=== PATIENT | female | born 1935 | race Caucasian/White ===

== ENCOUNTER 2017-04-08 06:23 | Inpatient (IN) | payer OTHER, MEDICARE ==
--- NOTE | 2017-04-08 07:37 | PDOC ---
History of Present Illness - General Chief Complaint: Cold Symptoms Stated Complaint: FLU LIKE SYMPTOMS Time Seen by Provider: 04/08/17 07:36 History Source: Patient Exam Limitations: No Limitations - History of Present Illness Initial Comments: 04/08/17 07:58 Patient is an 81-year-old female past medical history of hypertension, coronary artery disease status post coronary bypass proximally 6 years ago, who presents emergency department today complaining of a cough for 4 days. Patient states that she feels like she has a lot of mucus and it runs down the back of her throat. She has been taking Delsym at her home with relief of her cough. Today she states that her cough was worse than usual. Denies fevers, chills, chest pain, palpitations, ear pain, headache, nausea, vomiting, diarrhea, shortness of breath at rest, shortness of breath on exertion, urinary symptoms. Triage Vital signs show the patient is afebrile. Past History - Travel Traveled outside of the country in the last 30 days: No Close contact w/someone who was outside of country & ill: No - Past Medical History Allergies/Adverse Reactions: Allergies Allergy/AdvReac Type Severity Reaction Status Date / Time clindamycin Allergy Verified 04/08/17 06:38 Penicillins Allergy Verified 04/08/17 06:38 Home Medications: Ambulatory Orders Aspirin 81 mg PO DAILY 04/08/17 Furosemide 20 mg PO DAILY 04/08/17 Melatonin 3 mg PO HS 04/08/17 Rosuvastatin [Crestor -] 20 mg PO HS 04/08/17 Valsartan [Diovan] 80 mg PO DAILY 04/08/17 COPD: No HTN: Yes Hypercholesterolemia: Yes - Suicide/Smoking/Psychosocial Hx Smoking History: Never smoked Have you smoked in the past 12 months: No Information on smoking cessation initiated: No Hx Alcohol Use: No Drug/Substance Use Hx: No Review of Systems - Review of Systems Able to Perform ROS?: Yes Comments:: 04/08/17 08:00 CONSTITUTIONAL: Absent: fever, chills, diaphoresis, generalized weakness, malaise, loss of appetite HEENT: Present: nasal congestion, post nasal drip, rhinorrhea Absent: throat pain, throat swelling, difficulty swallowing, mouth swelling, ear pain, eye pain, visual Changes CARDIOVASCULAR: Absent: chest pain, loss of consciousness, palpitations, irregular heart rate, peripheral edema RESPIRATORY: Present: cough, unable to bring up mucous Absent: shortness of breath, dyspnea with exertion, orthopnea, wheezing, stridor, hemoptysis GASTROINTESTINAL: Absent: abdominal pain, abdominal distension, nausea, vomiting, diarrhea, constipation, melena, hematochezia GENITOURINARY: Absent: dysuria, frequency, urgency, hesitancy, hematuria, flank pain, genital pain MUSCULOSKELETAL: Absent: myalgia, arthralgia, joint swelling SKIN: Absent: rash, itching, pallor HEMATOLOGIC/IMMUNOLOGIC: Absent: easy bleeding, easy bruising, lymphadenopathy, frequent infections ENDOCRINE: Absent: unexplained weight gain, unexplained weight loss, heat intolerance, cold intolerance NEUROLOGIC: Absent: headache, focal weakness or paresthesias, dizziness, unsteady gait, seizure, mental status changes, bladder or bowel incontinence PSYCHIATRIC: Absent: anxiety, depression, suicidal or homicidal ideation, hallucinations. Is the patient limited [place] proficient: No *Physical Exam - Vital Signs Last Vital Signs Temp Pulse Resp BP Pulse Ox 98.9 F 89 20 141/62 98 04/08/17 06:38 04/08/17 06:38 04/08/17 06:38 04/08/17 06:38 04/08/17 06:38 - Physical Exam Comments: 04/08/17 08:01 GENERAL: Well developed, well nourished. Awake and alert. No acute distress. Actively coughing, wet, non-productive HEENT: Normocephalic, atraumatic. PERRLA, EOMI. No conjunctival pallor. Sclera are non- icteric. Moist mucous membranes. Oropharynx is clear. NECK: Supple. Full ROM. No JVD. Carotid pulses 2+ and symmetric, without bruits. No thyromegaly. No lymphadenopathy. CARDIOVASCULAR: Regular rate and rhythm. Patient with systolic murmur II/, loudest at the 3rd R intercostal space. No rubs, or gallops. Distal pulses are 2+ and symmetric. PULMONARY: No evidence of respiratory distress. Lungs clear to auscultation bilaterally. No wheezing, rales or rhonchi. ABDOMINAL: Soft. Non-tender. Non-distended. No rebound or guarding. No organomegaly. Normoactive bowel sounds. MUSCULOSKELETAL Normal range of motion at all joints. No bony deformities or tenderness. No CVA tenderness. EXTREMITIES: No cyanosis. No clubbing. No edema. No calf tenderness. SKIN: Warm and dry. Normal capillary refill. No rashes. No jaundice. NEUROLOGICAL: Alert, awake, appropriate. Cranial nerves 2-12 intact. No deficits to light touch and temperature in face, upper extremities and lower extremities. No motor deficits in the in face, upper extremities and lower extremities. Normoreflexic in the upper and lower extremities. Normal speech. Toes are down- going bilaterally. Gait is normal without ataxia. PSYCHIATRIC: Cooperative. Good eye contact. Appropriate mood and affect. ED Treatment Course - LABORATORY CBC & Chemistry Diagram: 04/08/17 08:18 04/08/17 14:07 Medical Decision Making - Medical Decision Making 04/08/17 08:02 Patient is an 81-year-old female with past medical history of HLD, coronary artery disease status post bypass approximately 6 years ago, who presents to the emergency department with 4 days of cough. Vital signs are currently stable , patient is afebrile. Low suspicion for influenza at this time as patient does not have headaches, body aches, nausea, vomiting or fever. Possible upper respiratory infection, sinus infection, pneumonia. Plan as follows 1.CBC, CMP, influenza swab 2.chest x-ray 3.Robitussin, DuoNeb 4.reevaluate 04/08/17 09:23 Marked leukocytosis at 25. Na 118 at this time. Pt. does take lasix per alf records. However, haziness at R base of lung. Possible PNA vs vascular congestion? Consider SIADH at this time. CXR also shows old coronary surgery, appears to be a bypass, possible valve. Will add blood cx, influenza testing, Chest CT, ekg, urine osmolalities. Will also give IVF NS for the hyponatremia. Free water restrict. Empiric IV ABX after blood cx drawn. 04/08/17 11:53 Urine with 3+ leukocytes, probable UTI EKG: Rate 97, sinus. incomplete RBBB. Non-specific ST-T wave changes. 04/08/17 12:[address] report to return. Will admit to tai for hyponatremia, leukocytosis, UTI, URI. Microblog sent 04/08/17 12:11 Spoke with tai Grayson. Case discussed and will accept pt for admission at this time. *DC/Admit/Observation/Transfer Diagnosis at time of Disposition: Hyponatremia Leukocytosis Qualifiers: Leukocytosis type: unspecified Qualified Code(s): D72.829 - Elevated white blood cell count, unspecified URI (upper respiratory infection) Qualifiers: URI type: unspecified viral URI Qualified Code(s): J06.9 - Acute upper respiratory infection, unspecified UTI (urinary tract infection) Qualifiers: Urinary tract infection type: acute cystitis Hematuria presence: without hematuria Qualified Code(s): N30.00 - Acute cystitis without hematuria - Discharge Dispostion Condition at time of disposition: Stable Admit: Yes - Referrals - Patient Instructions - Post Discharge Activity
[2017-04-08] MEDS ORDERED: guaiFENesin 200 MG/10 ML 10 ML UNIT-DOSE CUPS PO ONE (07:49)
[2017-04-08] MEDS ORDERED: ALBUTEROL SO4 2.5/IPRATROPIUM 0.5 INH SOL 3 ML VIAL.NEB. NEB ONE ×6 (07:50→10:54)
--- NOTE | 2017-04-08 07:51 | PDOC ---
*Physical Exam - Vital Signs Last Vital Signs Temp Pulse Resp BP Pulse Ox 98.9 F 89 20 141/62 98 04/08/17 06:38 04/08/17 06:38 04/08/17 06:38 04/08/17 06:38 04/08/17 06:38 - Physical Exam Comments: 04/08/17 07:50 The patient was examined by [APOLONIA Mcpherson] under my direct supervision. I personally evaluated the patient. I concur with the above findings and the plan of care. ED Treatment Course - LABORATORY CBC & Chemistry Diagram: 04/11/17 06:10 04/11/17 06:10 *DC/Admit/Observation/Transfer Diagnosis at time of Disposition: Hyponatremia, Leukocytosis, URI (upper respiratory infection), UTI (urinary tract infection) - Discharge Dispostion Disposition: HOME Condition at time of disposition: Improved - Prescriptions - Referrals - Patient Instructions - Post Discharge Activity
[2017-04-08] MEDS ORDERED: guaiFENesin/D-METHORPHAN HB 10 ML UNIT-DOSE CUPS ONE (08:20)
[2017-04-08 08:44] LABS: HEMATOCRIT 33.4 % (32.4-45.2); HEMOGLOBIN 11.1 GM/dL (10.7-15.3); MCH 29.5 pg (25.7-33.7); MCHC 33.4 g/dl (32.0-36.0); MEAN CELL VOLUME 88.3 fl (80-96); MEAN PLT VOLUME 9.6 fl (7.5-11.1); PLATELET COUNT 155 K/MM3 (134-434); RBC 3.78 M/mm3 (3.60-5.2); RDW 13.5 % (11.6-15.6); WHITE BLOOD COUNT 25.6 K/mm3 (4.0-10.0)
[2017-04-08 09:07] LABS: ALBUMIN 3.7 g/dl (3.4-5.0); ALK PHOS 69 U/L (45-117); ANION GAP 12 (8-16); BILIRUBIN,TOTAL 1.2 mg/dL (0.2-1.0); BLOOD UREA NITROGEN 10 mg/dL (7-18); CHLORIDE 83 mmol/L (98-107); CO2 23 mmol/L (21-32); CREATININE 0.8 mg/dL (0.55-1.02); GLUCOSE,RANDOM 112 mg/dL (74-106); POTASSIUM 3.7 mmol/L (3.5-5.1); SGOT/AST 66 U/L (15-37); SGPT/ALT 41 U/L (12-78); TOT PROT 6.8 g/dl (6.4-8.2)
[2017-04-08 09:18] LABS: SODIUM 118 mmol/L (136-145)
[2017-04-08] MEDS ORDERED: SODIUM CHLORIDE 0.9% 1000 ML INFUS.BAG IV ONE (09:27)
[2017-04-08] MEDS ORDERED: OSELTAMIVIR PHOSPHATE 75 MG CAPSULE PO ONE (09:32)
[2017-04-08] MEDS ORDERED: OSELTAMIVIR PHOSPHATE 75 MG CAPSULE ONE (09:42)
[2017-04-08] MEDS ORDERED: methylPREDNISolone NA SUCC 125 MG/2 ML VIAL IVPUSH ONE (10:42)
[2017-04-08] MEDS ORDERED: methylPREDNISolone NA SUCC 125 MG/2 ML VIAL ONE (10:54)
[2017-04-08 11:03] LABS: URINE APPEARANCE CLOUDY; URINE BILIRUBIN NEGATIVE (NEGATIVE); URINE BLOOD NEGATIVE (NEGATIVE); URINE COLOR YELLOW; URINE GLUCOSE (UA) NEGATIVE (NEGATIVE); URINE KETONE TRACE (NEGATIVE); URINE NITRITE NEGATIVE (NEGATIVE)
[2017-04-08 11:34] LABS: URINE LEUK ESTERASE 3+ (NEGATIVE); URINE PROTEIN 1+ (NEGATIVE)
[2017-04-08 11:37] LABS: EPI CELLS RARE /HPF (FEW); URINE MUCUS RARE
[2017-04-08 12:19] LABS: PLATELET ESTIMATE ADEQUATE
[2017-04-08 12:50] LABS: OSMOLALITY,URINE 409 mosm/kg (300-900)
--- NOTE | 2017-04-08 13:05 | HP ---
CHIEF COMPLAINT: PCP: HISTORY OF PRESENT ILLNESS: This is an 81 yo F with PMH of CAD s/p CABG 6 yrs ago, HTN, HLD, who presents due to persistent cough since new year. She does not recall any inciting event and no aggravating factors. Cough is dry/productive of scant clear sputum, mildly alleviated by over the counter cough medicine. She sleeps on 2 pillows, has not increased head elevation in bed and denies orthopnea. She denies sob, anorexia, LE edema. She state that she has had overwhelming sensation of thirst for a while and has been drinking a lot of water. At bed side patient is constantly sipping on water, stating that her mouth is "dry like a desert", however her mucus membranes appear moist. She denies h/a, dizziness, loc, sz, cp , n/v, diarrhea. She reports some polyuria and constipation. She is compliant with home meds. She denies rhinorrhea, thoat pain, ear pain. Patient is a poor historian. ER course was notable for: (1)EKG: Prolonged IL (2)CXR bibasilar congestion. CTA achest wnl. flu swab negative (3)tamifly, albuterol, medrol 125 Recent Travel: denies PAST MEDICAL HISTORY: as above PAST SURGICAL HISTORY: as above Social History: Lives in [facility] facility because her apt is getting renovated Smoking: denies Alcohol:denies Drugs: denies Family History: noncontributory Allergies clindamycin Allergy (Verified 04/08/17 06:38) Penicillins Allergy (Verified 04/08/17 06:38) HOME MEDICATIONS: Home Medications Medication Instructions Recorded Aspirin 81 mg PO DAILY 04/08/17 Furosemide 20 mg PO DAILY 04/08/17 Melatonin 3 mg PO HS 04/08/17 Rosuvastatin [Crestor -] 20 mg PO HS 04/08/17 Valsartan [Diovan] 80 mg PO DAILY 04/08/17 REVIEW OF SYSTEMS CONSTITUTIONAL: Absent: fever, chills, diaphoresis, loss of appetite, weight change HEENT: Absent: rhinorrhea, nasal congestion, throat pain CARDIOVASCULAR: Absent: chest pain, syncope, palpitations, irregular heart rate, lightheadedness , peripheral edema RESPIRATORY: Absent: shortness of breath, dyspnea with exertion, orthopnea, GASTROINTESTINAL: Absent: abdominal pain, abdominal distension, nausea, vomiting, diarrhea, constipation, melena, hematochezia GENITOURINARY: Absent: dysuria, hematuria, flank pain MUSCULOSKELETAL: Absent: myalgia, arthralgia SKIN: Absent: rash, itching, pallor HEMATOLOGIC/IMMUNOLOGIC: Absent: easy bleeding, easy bruising, lymphadenopathy, frequent infections ENDOCRINE: Absent: unexplained weight gain, unexplained weight loss NEUROLOGIC: Absent: headache, focal weakness or paresthesias PSYCHIATRIC: Absent: anxiety, depression PHYSICAL EXAMINATION Vital Signs - 24 hr 04/08/17 04/08/17 06:38 11:45 Temperature 98.9 F Pulse Rate 89 105 H Respiratory 20 Rate Blood Pressure 141/62 O2 Sat by Pulse 98 98 Oximetry (%) GENERAL: Awake, alert, and fully oriented, in no acute distress. HEAD: Normal with no signs of trauma. EYES: Pupils equal, round and reactive to light, extraocular movements intact, sclera anicteric, conjunctiva clear. No lid lag. EARS, NOSE, THROAT: Moist mucous membranes. NECK: supple without lymphadenopathy or JVD LUNGS: bibasilar crackles HEART: Regular rate and rhythm, normal S1 and S2 grade 3 systolic ejection murmur ABDOMEN: Soft, mildly tender in lower quadrants, moderately distended, reduced bowel sounds, no guarding, no rebound, no masses. MUSCULOSKELETAL: No CVA tenderness. UPPER EXTREMITIES: 2+ pulses, warm, well-perfused. No cyanosis. No clubbing. No peripheral edema. LOWER EXTREMITIES: 1+ pulses, warm, well-perfused. No calf tenderness. trace peripheral edema. NEUROLOGICAL: Cranial nerves II-XII grossly intact. Normal speech. fine tremor in hands PSYCHIATRIC: Cooperative. Good eye contact. Appropriate mood and affect. SKIN: Warm, dry, 3x2 cm echymotic lesion on RLQ abdomen Laboratory Results - last 24 hr 04/08/17 04/08/17 04/08/17 08:18 08:18 09:40 WBC 25.6 H RBC 3.78 Hgb 11.1 Hct 33.4 MCV 88.3 MCH 29.5 MCHC 33.4 RDW 13.5 Plt Count 155 MPV 9.6 Total Counted 100 Neutrophils % No Result Required. Neutrophils % (Manual) 80.0 Lymphocytes % No Result Required. Lymphocytes % (Manual) 2.0 L Monocytes % (Manual) 17 H* Eosinophils % (Manual) 1.0 Platelet Estimate Adequate Sodium 118 L* Potassium 3.7 Chloride 83 L Carbon Dioxide 23 Anion Gap 12 BUN 10 Creatinine 0.8 Creat Clearance w eGFR > 60 Random Glucose 112 H Calcium 9.0 Total Bilirubin 1.2 H AST 66 H ALT 41 Alkaline Phosphatase 69 Total Protein 6.8 Albumin 3.7 Urine Color Yellow Urine Appearance Cloudy Urine pH 6.0 Ur Specific Continental 1.011 Urine Protein 1+ H Urine Glucose (UA) Negative Urine Ketones Trace H Urine Blood Negative Urine Nitrite Negative Urine Bilirubin Negative Urine Urobilinogen 2.0 H Ur Leukocyte Esterase 3+ H Urine WBC (Auto) 99 Urine RBC (Auto) None Ur Epithelial Cells Rare Urine Mucus Rare Urine Osmolality 04/08/17 12:25 WBC RBC Hgb Hct MCV MCH MCHC RDW Plt Count MPV Total Counted Neutrophils % Neutrophils % (Manual) Lymphocytes % Lymphocytes % (Manual) Monocytes % (Manual) Eosinophils % (Manual) Platelet Estimate Sodium Potassium Chloride Carbon Dioxide Anion Gap BUN Creatinine Creat Clearance w eGFR Random Glucose Calcium Total Bilirubin AST ALT Alkaline Phosphatase Total Protein Albumin Urine Color Urine Appearance Urine pH Ur Specific [place] Urine Protein Urine Glucose (UA) Urine Ketones Urine Blood Urine Nitrite Urine Bilirubin Urine Urobilinogen Ur Leukocyte Esterase Urine WBC (Auto) Urine RBC (Auto) Ur Epithelial Cells Urine Mucus Urine Osmolality 409 ASSESSMENT/PLAN: This is an 81 yo F with PMH of CAD s/p CABG 6 yrs ago, HTN, HLD, who presents due to persistent cough since new year. She does not recall any inciting event and no aggravating factors. Hypoosmolar Hyponatremia with polydipsia -NA 118, Serm osm 241; appears euvolemic vs slightly overloaded -psychogenic polydipsia vs SIAHD; cerebral salt wasting less likely given absence of hypovolemia. -f/u urine osm, Na -fluid restrict to 500c free water/24 hr; strict i/o, trend bmp; if Na not improving, consider Brain imaging to r/o mass/SAH (low suspicion), NS IVF/salt tablets/iv loop diuretic -BNP 1400, CK 888, CKMB 63, trop wnl -CXR mild congestion -TTE -continue home lasix 20 PO daily Sepsis -tachycardia 102, Leukocytosis, monocytosis; 25 wbc/17 monocytes -UA + uti, -abd tenderness/distendtion may be due to constipation, f/u KUB -esr, crp, urine light chains, protein HTN -continue diovan, lasix HLD -continue statin CAD -continue Asa 81 d FEN -fluid restriciton to 500cc /day -monitor Na -regular diet Dispo: adm m/s Problem List - Problem (1) Polydipsia Code(s): R63.1 - POLYDIPSIA (2) Hyponatremia Code(s): E87.1 - HYPO-OSMOLALITY AND HYPONATREMIA (3) Leukocytosis Code(s): D72.829 - ELEVATED WHITE BLOOD CELL COUNT, UNSPECIFIED Qualifiers: Leukocytosis type: unspecified Qualified Code(s): D72.829 - Elevated white blood cell count, unspecified (4) UTI (urinary tract infection) Code(s): N39.0 - URINARY TRACT INFECTION, SITE NOT SPECIFIED Qualifiers: Urinary tract infection type: acute cystitis Hematuria presence: without hematuria Qualified Code(s): N30.00 - Acute cystitis without hematuria (5) CHF exacerbation Code(s): I50.9 - HEART FAILURE, UNSPECIFIED Visit type - Emergency Visit Emergency Visit: Yes ED Registration Date: 04/08/17 Care time: The patient presented to the Emergency Department on the above date and was hospitalized for further evaluation of their emergent condition. - New Patient This patient is new to me today: Yes Date on this admission: 04/08/17 - Critical Care Critical Care patient: No
[2017-04-08 13:18] LABS: OSMOLALITY,SERUM 241 mosm/kg (278-305)
--- NOTE | 2017-04-08 14:03 | EKG ---
Test Reason : Blood Pressure : / mmHG Vent. Rate : 097 BPM Atrial Rate : 097 BPM P-R Int : 158 ms QRS Dur : 100 ms QT Int : 374 ms P-R-T Axes : 073 082 051 degrees QTc Int : 474 ms SINUS RHYTHM WITH PREMATURE ATRIAL COMPLEXES INCOMPLETE RIGHT BUNDLE BRANCH BLOCK POSSIBLE ANTERIOR INFARCT , AGE UNDETERMINED ABNORMAL ECG NO PREVIOUS ECGS AVAILABLE Confirmed by ARIELLE ONTIVEROS MD ([id number]) on 04/08/2017 2:02:57 PM Referred By: Confirmed By:ARIELLE ONTIVEROS MD
[2017-04-08] MEDS: ALBUTEROL SO4 0.083% IH SOL 2.5 MG/3 ML VIAL.NEB. NEB PRN (14:09)
[2017-04-08 15:55] LABS: ANION GAP 15 (8-16); BLOOD UREA NITROGEN 9 mg/dL (7-18); CALCIUM 8.5 mg/dL (8.5-10.1); CHLORIDE 84 mmol/L (98-107); CO2 20 mmol/L (21-32); CREATININE 0.9 mg/dL (0.55-1.02); GLUCOSE,RANDOM 163 mg/dL (74-106); POTASSIUM 3.2 mmol/L (3.5-5.1)
[2017-04-08 15:57] LABS: SODIUM 119 mmol/L (136-145)
[2017-04-08] MEDS ORDERED: SODIUM CHLORIDE 1,000 ML IV STA (16:36)
--- NOTE | 2017-04-08 17:48 | PN ---
Teaching Attending Note Name of Resident: Odilia Grayson ATTENDING PHYSICIAN STATEMENT I saw and evaluated the patient. I reviewed the resident's note and discussed the case with the resident. I agree with the resident's findings and plan as documented. SUBJECTIVE:81yo F wtih PMH HTN, CAD s/p CABG and dyslipidemia presented to the ER with cough x3 months. states she cough constantly and is worse on exertion. cough is not productive and improved with cough medicine. states she has also been very thirsty and continuously requests a glass of water. denies CP, SOB, fever, chills, N/V/C/D, myalgia, rhinorrhea, contact with flu OBJECTIVE: Last Vital Signs Temp Pulse Resp BP Pulse Ox 98.6 F 95 H 16 132/66 97 04/08/17 16:59 04/08/17 16:59 04/08/17 16:59 04/08/17 16:59 04/08/17 16:59 General mildly anxious HEENT EOMI, erthematous pharynx, no nasal polyps, rhinorrhea or erathematous nares CV S1 S2 RRR no murmur/rub/gallop Lungs CTA B/L no wheezing/rales/rhonchi Abdomen soft NT/ND no suprapubic tenderness Extremities no pedal edema ASSESSMENT AND PLAN: 81yo F wtih PMH HTN, CAD s/p CABG and dyslipidemia presented to the ER with cough x3 months and found to be hyponatremic 1. Severe hyponatremia- medicine admission. pt clinically appears dry. will give 1 L NS bolus and repeat labs to monitor for improvement. water restriction to <500cc at this time. check Uosm, Sosm, La. will need frequent lab draws and monitoring 2. Sepsis due to UTI and questionable R infiltrate- tachycardia and leukocytosis with +UA. CTA on my read has questionable R infiltrate. started on levaquin in the ER. will cont for now. will d/c tamiflu as pt does not have typical symptoms suggestive of flu and flu swab is negative. Cx pending 3. HTn- currently normotensive. cont valsartan. will hold lasix at this time. monitor 4. Cough- possible due to postnasal drip although could be due to R infiltrate however less likely given chronicity.will consider nasal spray if does not improve 5. CAD s/p CABG- no signs of acs. cont asa 6. Dyslipidemia- on statin 7. DVT ppx- hep sq
[2017-04-08] MEDS ORDERED: POTASSIUM CHLORIDE ORAL LIQUID 20 MEQ/15 ML PO ONE (19:30)
[2017-04-08] MEDS ORDERED: POTASSIUM CHLORIDE ORAL LIQUID 20 MEQ/15 ML ONE (19:44)
[2017-04-08 20:59] LABS: ANION GAP 11 (8-16); BLOOD UREA NITROGEN 8 mg/dL (7-18); CALCIUM 8.1 mg/dL (8.5-10.1); CHLORIDE 87 mmol/L (98-107); CO2 19 mmol/L (21-32); CREATININE 0.7 mg/dL (0.55-1.02); GLUCOSE,RANDOM 145 mg/dL (74-106); POTASSIUM 4.2 mmol/L (3.5-5.1)
[2017-04-08 21:04] LABS: SODIUM 117 mmol/L (136-145)
[2017-04-08] MEDS: ROSUVASTATIN CA 20 MG TABLET (FP) PO SCH (22:51)
[2017-04-08] MEDS: guaiFENesin 200 MG/10 ML 10 ML UNIT-DOSE CUPS PO PRN (22:51)
[2017-04-08] MEDS: HEPARIN NA (PORCINE) 5,000 UNITS/ML 1ML VIAL SQ SCH (22:51)
[2017-04-09 03:30] LABS: ANION GAP 10 (8-16); BLOOD UREA NITROGEN 10 mg/dL (7-18); CALCIUM 8.3 mg/dL (8.5-10.1); CHLORIDE 91 mmol/L (98-107); CO2 22 mmol/L (21-32); CREATININE 0.8 mg/dL (0.55-1.02); GLUCOSE,RANDOM 121 mg/dL (74-106); POTASSIUM 4.2 mmol/L (3.5-5.1)
[2017-04-09 03:47] LABS: SODIUM 123 mmol/L (136-145)
[2017-04-09 06:11] VITALS: BMI 32.1
[2017-04-09] MEDS: guaiFENesin 200 MG/10 ML 10 ML UNIT-DOSE CUPS PO PRN ×3 (06:45→17:27)
--- NOTE | 2017-04-09 07:00 | HOSP ---
Physical Examination Vital Signs: Vital Signs Temperature 98.5 F 04/09/17 05:00 Pulse Rate 83 04/09/17 05:00 Respiratory Rate 18 04/09/17 05:00 Blood Pressure 140/59 04/09/17 05:00 O2 Sat by Pulse Oximetry (%) 95 04/08/17 21:00 Labs: CBC, BMP 04/08/17 08:18 04/09/17 03:00 Hospitalist Encounter Assessment: Evaluated the patient after the BMP came back. Na was 117 but patient was asymptomatic. Repeat BMP showed Na-123. RN mentions that patient is on water restriction so she is NPO. Patient wanting to drink water, trying to get water even from the toilet. Vitals: BP: 140/59mmHg, P-83, RR-16 General: Patient is comfortably lying in bed, awake, alert, oriented, in no acute distress. HEENT: EOM intact, no pallor or icterus. 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 Piedra. Visit type - Emergency Visit Emergency Visit: Yes ED Registration Date: 04/08/17 Care time: The patient presented to the Emergency Department on the above date and was hospitalized for further evaluation of their emergent condition. - New Patient This patient is new to me today: Yes Date on this admission: 04/09/17 - Critical Care Critical Care patient: No
[2017-04-09 07:15] LABS: HEMATOCRIT 29.8 % (32.4-45.2); HEMOGLOBIN 9.9 GM/dL (10.7-15.3); MCH 29.1 pg (25.7-33.7); MCHC 33.2 g/dl (32.0-36.0); MEAN CELL VOLUME 87.7 fl (80-96); PLATELET COUNT 138 K/MM3 (134-434); RBC 3.39 M/mm3 (3.60-5.2); RDW 13.8 % (11.6-15.6); WHITE BLOOD COUNT 26.4 K/mm3 (4.0-10.0)
[2017-04-09 07:28] LABS: INR 1.31 (0.82-1.09); PROTHROMBIN TIME (PATIENT) 14.8 SEC (9.98-11.88)
[2017-04-09 08:00] LABS: ALBUMIN 3.1 g/dl (3.4-5.0); ANION GAP 10 (8-16); BLOOD UREA NITROGEN 10 mg/dL (7-18); CALCIUM 8.3 mg/dL (8.5-10.1); CHLORIDE 93 mmol/L (98-107); CO2 22 mmol/L (21-32); CREATININE 0.7 mg/dL (0.55-1.02); GLUCOSE,RANDOM 101 mg/dL (74-106); MAGNESIUM 1.9 mg/dL (1.8-2.4); PHOSPHOROUS 2.4 mg/dL (2.5-4.9); POTASSIUM 4.1 mmol/L (3.5-5.1); SGOT/AST 74 U/L (15-37); SGPT/ALT 46 U/L (12-78); SODIUM 125 mmol/L (136-145)
[2017-04-09 08:10] LABS: ALK PHOS 61 U/L (45-117)
[2017-04-09 09:06] LABS: PLATELET ESTIMATE ADEQUATE
[2017-04-09] MEDS ORDERED: FUROSEMIDE 20 MG TABLET (FP) PO SCH (10:00)
[2017-04-09] MEDS ORDERED: VALSARTAN 80 MG TABLET (UD) PO SCH (10:00)
[2017-04-09] MEDS ORDERED: ASPIRIN 81 MG CHEWABLE TABLETS PO SCH (10:00)
[2017-04-09] MEDS: HEPARIN NA (PORCINE) 5,000 UNITS/ML 1ML VIAL SQ SCH ×2 (10:16→21:13)
[2017-04-09] MEDS: ALBUTEROL SO4 0.083% IH SOL 2.5 MG/3 ML VIAL.NEB. NEB PRN ×2 (13:28→20:30)
--- NOTE | 2017-04-09 14:27 | PN ---
Progress Note (short form) - Note Progress Note: c/o cough. slightly better from yesterday. denies Cp, SOB, fever, chills, N/V/C/ D, dysuria, hematuria Current Medications Generic Name Dose Route Start Last Admin Trade Name Freq PRN Reason Stop Dose Admin Albuterol Sulfate 1 amp 04/08/17 13:56 04/09/17 13:28 Ventolin 0.083% Nebulizer Soln - NEB 1 amp Q4H PRN Administration SHORT OF BREATH/WHEEZING Aspirin 81 mg 04/09/17 10:00 04/09/17 10:16 Asa - PO 81 mg DAILY PIERO Administration Guaifenesin 10 ml 04/08/17 22:23 04/09/17 06:45 Robitussin - PO 10 ml Q6H PRN Administration COUGH Heparin Sodium (Porcine) 5,000 unit 04/08/17 22:00 04/09/17 10:16 Heparin - SQ 5,000 unit BID PIERO Administration Levofloxacin 750 mg in 150 mls @ 100 mls/hr 04/09/17 10:00 04/09/17 10:17 Levaquin 750 Mg Premixed Ivpb - IVPB 100 mls/hr DAILY PIERO Administration Rosuvastatin Calcium 20 mg 04/08/17 22:00 04/08/17 22:51 Crestor - PO 20 mg HS PIERO Administration Valsartan 80 mg 04/09/17 10:00 04/09/17 10:16 Diovan - PO 80 mg DAILY PIERO Administration Last Vital Signs Temp Pulse Resp BP Pulse Ox 98.5 F 101 H 20 131/59 95 04/09/17 09:00 04/09/17 09:00 04/09/17 09:00 04/09/17 09:00 04/09/17 09:00 General NAD A&O x3 HEENT moist mucosa CV S1 S2 RRR no murmur/rub/gallop Lungs CTA B/L no wheezing/rales/rhonchi Abdomen soft NT/ND no suprapubic tenderness Extremities no pedal edema CBCD WBC 26.4 K/mm3 (4.0-10.0) H 04/09/17 06:45 RBC 3.39 M/mm3 (3.60-5.2) L 04/09/17 06:45 Hgb 9.9 GM/dL (10.7-15.3) L D 04/09/17 06:45 Hct 29.8 % (32.4-45.2) L 04/09/17 06:45 MCV 87.7 fl (80-96) 04/09/17 06:45 MCHC 33.2 g/dl (32.0-36.0) 04/09/17 06:45 RDW 13.8 % (11.6-15.6) 04/09/17 06:45 Plt Count 138 K/MM3 (134-434) 04/09/17 06:45 MPV 10.0 fl (7.5-11.1) 04/09/17 06:45 CMP Sodium 125 mmol/L (136-145) L 04/09/17 06:45 Potassium 4.1 mmol/L (3.5-5.1) 04/09/17 06:45 Chloride 93 mmol/L (98-107) L 04/09/17 06:45 Carbon Dioxide 22 mmol/L (21-32) 04/09/17 06:45 Anion Gap 10 (8-16) 04/09/17 06:45 BUN 10 mg/dL (7-18) 04/09/17 06:45 Creatinine 0.7 mg/dL (0.55-1.02) 04/09/17 06:45 Creat Clearance w eGFR > 60 (>60) 04/09/17 06:45 Calcium 8.3 mg/dL (8.5-10.1) L 04/09/17 06:45 Total Bilirubin 1.0 mg/dL (0.2-1.0) 04/09/17 06:45 AST 74 U/L (15-37) H 04/09/17 06:45 ALT 46 U/L (12-78) 04/09/17 06:45 Alkaline Phosphatase 61 U/L (45-117) 04/09/17 06:45 Total Protein 6.0 g/dl (6.4-8.2) L 04/09/17 06:45 Albumin 3.1 g/dl (3.4-5.0) L 04/09/17 06:45 Microbiology 04/08/17 09:40 Urine Culture - Preliminary Urine - Urine Clean Catch Lactose Fermenting Neg Bacilli 04/08/17 09:40 Blood Culture - Preliminary Blood - Peripheral Venous NO GROWTH OBTAINED AFTER 24 HOURS, INCUBATION TO CONTINUE FOR 4 DAYS. 04/08/17 09:40 Blood Culture - Preliminary Blood - Peripheral Venous NO GROWTH OBTAINED AFTER 24 HOURS, INCUBATION TO CONTINUE FOR 4 DAYS. 04/08/17 09:40 Influenza Types A,B Antigen (STAR) - Final Nasopharyngeal Swab - Final ASSESSMENT AND PLAN: 81yo F wtih PMH HTN, CAD s/p CABG and dyslipidemia presented to the ER with cough x3 months and found to be hyponatremic 1. Severe hyponatremia-improved. no longer confused. s/p 1.5L NS. repeat BMp and monitor Na level closely. awaiting repeat La and Uosm. pt does not remember to inform RN of urge to urinate 2. Sepsis due to UTI and questionable R infiltrate-improved. continues to have dry cough. cont Levaquin day 2. Ucx pending 3. HTn- currently normotensive. cont valsartan. will hold lasix at this time. monitor 4. Cough- possible due to postnasal drip. start flonase 5. Normocytic anemia- do not have baseline Hgb. no signs of bleeding. likely dilutional component. repeat Hgb. txn as needed 6. CAD s/p CABG- no signs of acs. cont asa 7. Dyslipidemia- on statin 8. DVT ppx- hep sq Visit type - Emergency Visit Emergency Visit: Yes ED Registration Date: 04/08/17 Care time: The patient presented to the Emergency Department on the above date and was hospitalized for further evaluation of their emergent condition. - New Patient This patient is new to me today: No - Critical Care Critical Care patient: No - Discharge Referral Referred to [facility] No
[2017-04-09 15:24] LABS: HEMATOCRIT 30.8 % (32.4-45.2); HEMOGLOBIN 10.7 GM/dL (10.7-15.3); MCH 30.6 pg (25.7-33.7); MCHC 34.6 g/dl (32.0-36.0); MEAN CELL VOLUME 88.5 fl (80-96); MEAN PLT VOLUME 10.5 fl (7.5-11.1); PLATELET COUNT 155 K/MM3 (134-434); RBC 3.49 M/mm3 (3.60-5.2); RDW 13.9 % (11.6-15.6); WHITE BLOOD COUNT 24.4 K/mm3 (4.0-10.0)
[2017-04-09 15:50] LABS: ANION GAP 10 (8-16); BLOOD UREA NITROGEN 16 mg/dL (7-18); CALCIUM 8.5 mg/dL (8.5-10.1); CHLORIDE 95 mmol/L (98-107); CO2 23 mmol/L (21-32); GLUCOSE,RANDOM 129 mg/dL (74-106); POTASSIUM 3.8 mmol/L (3.5-5.1); SODIUM 128 mmol/L (136-145)
[2017-04-09] MEDS: FLUTICASONE PROP 0.05% 16 GM NASAL SPRAY NS SCH (16:21)
[2017-04-09] MEDS: ROSUVASTATIN CA 20 MG TABLET (FP) PO SCH (21:13)
[2017-04-10] MEDS: MELATONIN 1 MG TABLET PO SCH ×2 (00:04→22:02)
[2017-04-10] MEDS: guaiFENesin 200 MG/10 ML 10 ML UNIT-DOSE CUPS PO PRN (06:54)
[2017-04-10 08:17] LABS: BASO % 0.1 % (0-2.0); EOS % 0.6 % (0-4.5); HEMATOCRIT 30.8 % (32.4-45.2); HEMOGLOBIN 10.3 GM/dL (10.7-15.3); LYMPH % 12.6 % (8-40); MCH 29.3 pg (25.7-33.7); MCHC 33.4 g/dl (32.0-36.0); MEAN CELL VOLUME 87.8 fl (80-96); MEAN PLT VOLUME 9.5 fl (7.5-11.1); MONO % 14.5 % (3.8-10.2); NEUT % 72.2 % (42.8-82.8); PLATELET COUNT 146 K/MM3 (134-434); RBC 3.51 M/mm3 (3.60-5.2); RDW 14.1 % (11.6-15.6); WHITE BLOOD COUNT 18.8 K/mm3 (4.0-10.0)
[2017-04-10] MEDS ORDERED: guaiFENesin 200 MG/10 ML 10 ML UNIT-DOSE CUPS PO PRN (08:19)
[2017-04-10 08:20] LABS: CHLORIDE 99 mmol/L (98-107); POTASSIUM 3.7 mmol/L (3.5-5.1); SODIUM 131 mmol/L (136-145)
[2017-04-10 08:30] LABS: ANION GAP 8 (8-16); BLOOD UREA NITROGEN 16 mg/dL (7-18); CALCIUM 8.3 mg/dL (8.5-10.1); CO2 24 mmol/L (21-32); GLUCOSE,RANDOM 93 mg/dL (74-106)
[2017-04-10] MEDS: ALBUTEROL SO4 0.083% IH SOL 2.5 MG/3 ML VIAL.NEB. NEB PRN ×2 (08:46→20:12)
--- NOTE | 2017-04-10 09:33 | PN ---
Teaching Attending Note Name of Resident: Odilia Grayson ATTENDING PHYSICIAN STATEMENT I saw and evaluated the patient. I reviewed the resident's note and discussed the case with the resident. I agree with the resident's findings and plan as documented. SUBJECTIVE:c/o non productive cough. improves with cough syrup. denies CP, SOB< fever, chills, N/V/C/D, or increased thirst OBJECTIVE: Last Vital Signs Temp Pulse Resp BP Pulse Ox 98.4 F 101 H 18 137/81 98 04/10/17 06:57 04/10/17 06:57 04/10/17 06:57 04/10/17 06:57 04/09/17 20:47 General NAD CV S1 S2 RRR no murmur/rub/gallop Lungs CTA B/L no wheezing/rales/rhonchi ASSESSMENT AND PLAN: 81yo F wtih PMH HTN, CAD s/p CABG and dyslipidemia presented to the ER with cough x3 months and found to be hyponatremic 1. Severe hyponatremia-improved. continues to improved on water restriction. La level improved., no longer appears dehydrated. will cont to hold lasix. unclear if she has hx of CHF or was used for HTN 2. Sepsis due to Ecoli UTI and questionable R infiltrate-improved. continues to have dry cough. will start mucinex. cont Levaquin day 3. 3. HTn- currently normotensive. cont valsartan. will hold lasix at this time. monitor 4. Cough- possible due to postnasal drip. cont flonase 5. Normocytic anemia- do not have baseline Hgb. no signs of bleeding. likely dilutional component.Hgb stable. iron studies pending. txn as needed 6. CAD s/p CABG- no signs of acs. cont asa 7. Dyslipidemia- on statin 8. DVT ppx- hep sq 9. anticipate d/c tomorrow to [facility]isted living center. pt acknowledge possible d/ c tomorrow. all questions answered.
[2017-04-10] MEDS: HEPARIN NA (PORCINE) 5,000 UNITS/ML 1ML VIAL SQ SCH ×2 (09:38→21:38)
[2017-04-10] MEDS: VALSARTAN 80 MG TABLET (UD) PO SCH (09:39)
[2017-04-10] MEDS: ASPIRIN 81 MG CHEWABLE TABLETS PO SCH (09:39)
[2017-04-10] MEDS: FLUTICASONE PROP 0.05% 16 GM NASAL SPRAY NS SCH (10:46)
[2017-04-10] MEDS: guaiFENesin/CODEINE 5 ML UNIT-DOSE CUPS PO PRN ×2 (12:30→21:37)
--- NOTE | 2017-04-10 12:39 | PN ---
Physical Exam: SUBJECTIVE: Patient seen and examined Patient resting in bed NAD. Afebrile and hemodynamically stable, no acute events. Denies being thirsty. Tolerating diet. cough is still severe. denies sore thoroat, rhinorrhea, cp, sob. OBJECTIVE: Vital Signs Period Temp Pulse Resp BP Sys/Roblero Pulse Ox Last 24 Hr 97.5 F-98.7 F 81-101 18-20 116-137/58-81 98 GENERAL: Awake, alert, and fully oriented, in no acute distress. HEAD: Normal with no signs of trauma. EYES: Pupils equal, round and reactive to light, extraocular movements intact, sclera anicteric, conjunctiva clear. No lid lag. EARS, NOSE, THROAT: Moist mucous membranes. NECK: supple without lymphadenopathy or JVD LUNGS: bibasilar crackles HEART: Regular rate and rhythm, normal S1 and S2 grade 3 systolic ejection murmur ABDOMEN: Soft, nontender, nondistended, reduced bowel sounds, no guarding, no rebound, no masses. MUSCULOSKELETAL: No CVA tenderness. UPPER EXTREMITIES: 2+ pulses, warm, well-perfused. No cyanosis. No clubbing. No peripheral edema. LOWER EXTREMITIES: 1+ pulses, warm, well-perfused. No calf tenderness. trace peripheral edema. NEUROLOGICAL: Cranial nerves II-XII grossly intact. Normal speech. fine tremor in hands PSYCHIATRIC: Cooperative. Good eye contact. Appropriate mood and affect. SKIN: Warm, dry, 3x2 cm echymotic lesion on RLQ abdomen Laboratory Results - last 24 hr 04/09/17 04/09/17 04/09/17 14:50 14:50 17:25 WBC 24.4 H RBC 3.49 L Hgb 10.7 Hct 30.8 L MCV 88.5 MCH 30.6 MCHC 34.6 RDW 13.9 Plt Count 155 MPV 10.5 Neutrophils % Lymphocytes % Monocytes % Eosinophils % Basophils % Sodium 128 L Potassium 3.8 Chloride 95 L Carbon Dioxide 23 Anion Gap 10 BUN 16 Creatinine 1.0 Random Glucose 129 H Calcium 8.5 Urine Osmolality Ur Random Sodium 19 04/09/17 04/10/17 04/10/17 18:00 07:40 07:40 WBC 18.8 H RBC 3.51 L Hgb 10.3 L Hct 30.8 L MCV 87.8 MCH 29.3 MCHC 33.4 RDW 14.1 Plt Count 146 MPV 9.5 Neutrophils % 72.2 Lymphocytes % 12.6 Monocytes % 14.5 H Eosinophils % 0.6 Basophils % 0.1 Sodium 131 L Potassium 3.7 Chloride 99 Carbon Dioxide 24 Anion Gap 8 BUN 16 Creatinine 1.0 Random Glucose 93 Calcium 8.3 L Urine Osmolality 187 L Ur Random Sodium 04/10/17 10:05 WBC RBC Hgb Hct MCV MCH MCHC RDW Plt Count MPV Neutrophils % Lymphocytes % Monocytes % Eosinophils % Basophils % Sodium Potassium Chloride Carbon Dioxide Anion Gap BUN Creatinine Random Glucose Calcium Urine Osmolality 380 Ur Random Sodium Active Medications Generic Name Dose Route Start Last Admin Trade Name Freq PRN Reason Stop Dose Admin Albuterol Sulfate 1 amp 04/10/17 08:19 04/10/17 08:46 Ventolin 0.083% Nebulizer Soln - NEB 1 amp Q4H PRN Administration SHORT OF BREATH/WHEEZING Aspirin 81 mg 04/10/17 10:00 04/10/17 09:39 Asa - PO 81 mg DAILY PIERO Administration Fluticasone Propionate 2 spray 04/09/17 14:30 04/10/17 10:46 Flonase - NS Not Given DAILY PIERO Guaifenesin/Codeine Phosphate 5 ml 04/10/17 11:41 04/10/17 12:30 Robitussin Ac - PO 5 ml Q8H PRN Administration COUGH Heparin Sodium (Porcine) 5,000 unit 04/10/17 10:00 04/10/17 09:38 Heparin - SQ 5,000 unit BID PIERO Administration Levofloxacin 750 mg in 150 mls @ 100 mls/hr 04/10/17 10:00 04/10/17 09:38 Levaquin 750 Mg Premixed Ivpb - IVPB 100 mls/hr DAILY PIERO Administration Melatonin 3 mg 04/10/17 22:00 04/10/17 00:04 Melatonin PO 3 mg HS PIERO Administration Rosuvastatin Calcium 20 mg 04/10/17 22:00 Crestor - PO HS PIERO Valsartan 80 mg 04/10/17 10:00 04/10/17 09:39 Diovan - PO 80 mg DAILY PIERO Administration ASSESSMENT/PLAN: This is an 81 yo F with PMH of CAD s/p CABG 6 yrs ago, HTN, HLD, who presents due to persistent cough since new year. She does not recall any inciting event and no aggravating factors. 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, euvolemic -trend bmp Sepsis -secondary to UTI or LLL PNA -continue levaquin -add robitussin ac for cough HTN -continue diovan HLD -continue statin CAD -continue Asa 81 d FEN -fluid restriciton to 500cc /day -monitor Na -regular diet Dispo: adm m/s Problem List - Problems (1) Polydipsia Code(s): R63.1 - POLYDIPSIA (2) Hyponatremia Code(s): E87.1 - HYPO-OSMOLALITY AND HYPONATREMIA (3) Leukocytosis Code(s): D72.829 - ELEVATED WHITE BLOOD CELL COUNT, UNSPECIFIED Qualifiers: Leukocytosis type: unspecified Qualified Code(s): D72.829 - Elevated white blood cell count, unspecified (4) UTI (urinary tract infection) Code(s): N39.0 - URINARY TRACT INFECTION, SITE NOT SPECIFIED Qualifiers: Urinary tract infection type: acute cystitis Hematuria presence: without hematuria Qualified Code(s): N30.00 - Acute cystitis without hematuria (5) CHF exacerbation Code(s): I50.9 - HEART FAILURE, UNSPECIFIED Visit type - Emergency Visit Emergency Visit: Yes ED Registration Date: 04/08/17 Care time: The patient presented to the Emergency Department on the above date and was hospitalized for further evaluation of their emergent condition. - New Patient This patient is new to me today: No - Critical Care Critical Care patient: No - Discharge Referral Referred to [facility] Med [facility] No
[2017-04-10] MEDS ORDERED: PT OWN MED DRAWER 7, Y5N ONE (17:27)
[2017-04-10] MEDS ORDERED: ROSUVASTATIN CA 10 MG TABLET (FP) ONE (21:15)
[2017-04-10] MEDS ORDERED: ROSUVASTATIN CA 20 MG TABLET (FP) PO SCH (22:00)
[2017-04-11 07:53] LABS: BASO % 0.4 % (0-2.0); EOS % 2.3 % (0-4.5); HEMATOCRIT 30.5 % (32.4-45.2); HEMOGLOBIN 10.1 GM/dL (10.7-15.3); LYMPH % 17.4 % (8-40); MCH 29.5 pg (25.7-33.7); MCHC 33.1 g/dl (32.0-36.0); MEAN PLT VOLUME 10.2 fl (7.5-11.1); MONO % 14.5 % (3.8-10.2); NEUT % 65.4 % (42.8-82.8); PLATELET COUNT 168 K/MM3 (134-434); RBC 3.43 M/mm3 (3.60-5.2); RDW 13.9 % (11.6-15.6); WHITE BLOOD COUNT 16.1 K/mm3 (4.0-10.0)
[2017-04-11 08:22] LABS: ANION GAP 7 (8-16); BLOOD UREA NITROGEN 16 mg/dL (7-18); CALCIUM 8.6 mg/dL (8.5-10.1); CHLORIDE 103 mmol/L (98-107); CO2 26 mmol/L (21-32); CREATININE 0.9 mg/dL (0.55-1.02); GLUCOSE,RANDOM 82 mg/dL (74-106); MAGNESIUM 2.3 mg/dL (1.8-2.4); PHOSPHOROUS 4.4 mg/dL (2.5-4.9); SODIUM 136 mmol/L (136-145)
[2017-04-11] MEDS: VALSARTAN 80 MG TABLET (UD) PO SCH (10:20)
[2017-04-11] MEDS: HEPARIN NA (PORCINE) 5,000 UNITS/ML 1ML VIAL SQ SCH (10:21)
[2017-04-11] MEDS: FLUTICASONE PROP 0.05% 16 GM NASAL SPRAY NS SCH (10:21)
[2017-04-11] MEDS: ASPIRIN 81 MG CHEWABLE TABLETS PO SCH (10:21)
--- NOTE | 2017-04-11 14:18 | PN ---
Teaching Attending Note Name of Resident: Gurpreet Duque ATTENDING PHYSICIAN STATEMENT I saw and evaluated the patient. I reviewed the resident's note and discussed the case with the resident. I agree with the resident's findings and plan as documented. SUBJECTIVE:continues to have non productive cough. slight improvement since yesterday. denies CP, SOB, fever, chills, N/V/C/D OBJECTIVE: Last Vital Signs Temp Pulse Resp BP Pulse Ox 98.8 F 101 H 18 143/69 97 04/11/17 09:00 04/11/17 09:00 04/11/17 09:00 04/11/17 09:00 04/10/17 21:00 General NAD Lungs CTA B/L no wheezing/rales/rhonchi ASSESSMENT AND PLAN: 81yo F wtih PMH HTN, CAD s/p CABG and dyslipidemia presented to the ER with cough x3 months and found to be hyponatremic 1. Severe hyponatremia-hypovolemic hyponatremia exacerbated by polydipsia with lasix use. now resolved. can lift water restrictions at this time. encouraged pt to drink normal amount of water. sodium level should be periodicaly checked to evlaute if sodium is worsening especially if pt starts to drink copious amounts of water. 2. Sepsis due to Ecoli UTI and questionable R infiltrate-improved. continues to have dry cough. will start mucinex. cont Levaquin day 4. will complete 7 day course 3. HTn- currently normotensive. cont valsartan. will hold lasix at this time. monitor 4. Cough- possible due to postnasal drip. cont flonase 5. Normocytic anemia- do not have baseline Hgb. no signs of bleeding. likely dilutional component.Hgb stable. iron studies pending. txn as needed 6. CAD s/p CABG- no signs of acs. cont asa 7. Dyslipidemia- on statin 8. DVT ppx- hep sq 9. d/c back to assisted living. spoke with niece present at bedside. all questions answered.
[2017-04-11 14:56] VITALS: BP 136/92; PULSE 93; TEMP 99.3
[2017-04-11 16:21] LABS: KAPPA/LAMBDA RATIO, UR 26.38 (2.04-10.37)
== END 2017-04-11 17:28 | disposition short-term general hospital (02) | DRG 871 ==
LOC: JER 06:23 → JERBED 12:15 → J4W 21:22 → J8W 04-09 22:35
PROVIDERS: ADMIT Internal Medicine; ATTEND Internal Medicine
DX: A41.9 Sepsis, unspecified organism (principal); J18.9 Pneumonia, unspecified organism; E87.1 Hypo-osmolality and hyponatremia; N39.0 Urinary tract infection, site not specified; I10 Essential (primary) hypertension; E78.5 Hyperlipidemia, unspecified; I25.10 Atherosclerotic heart disease of native coronary artery without angina pectoris; Z95.1 Presence of aortocoronary bypass graft; B96.20 Unspecified Escherichia coli [E. coli] as the cause of diseases classified elsewhere; D64.9 Anemia, unspecified; D72.829 Elevated white blood cell count, unspecified
CPT/HCPCS: 36415; 71045-TC-FY; 71275-TC; 74018-TC-FY; 80048; 80053; 81003; 81015; 82550; 82553; 83735; 83880; 83883; 83930; 83935; 84100; 84156; 84300; 84443; 84484; 85025; 85027; 85610; 85651; 86140; 87040; 87086; 87186; 87804; 93005; 93010; 93306-TC; 94010; 94640; 97116-GP; 97161-GP; 99285-25; J1644